=== PATIENT | male | born 1995 | race Caucasian/White ===

== ENCOUNTER 2019-01-15 23:14 | Emergency (ER) | payer SELFPAY ==
[~2019-01-15] VITALS: Ht 170.2 cm; Wt 111.6 kg
[2019-01-15 23:26] VITALS: Ht 170.2 cm; Wt 111.6 kg
[2019-01-16 01:14] VITALS: BP 118/96
== END 2019-01-16 01:14 | disposition home or self-care (01) ==
LOC: ED 23:14
DX: H66.91 Otitis media, unspecified, right ear (principal); Z79.899 Other long term (current) drug therapy
CPT/HCPCS: J7512; J7613; J7644